=== PATIENT | female | born 1995 | race Caucasian/White ===

== ENCOUNTER 2020-11-17 09:46 | Emergency (ER) | payer BC ==
[2020-11-17] MEDS ORDERED: NA CHLORIDE 0.9% 1,000 ML ONE (10:29)
[2020-11-17 10:42] LABS: Absolute Lymphocytes (CBC) 1.3 K/uL (0.7-4.9); Basophils % 0.3 % (0-1.3); Lymphocytes % 18.1 % (15.3-44.8); RBC Red Blood Cell Count 3.85 M/uL (3.86-4.86)
[2020-11-17 10:51] LABS: Urine Blood Negative (Negative); Urine Glucose Negative (Negative); Urine Protein Negative (Negative); Urine Specific Gravity 1.015 (1.005-1.030); Urine pH 7.5 (5.0-7.0)
[2020-11-17 10:57] LABS: ALT/SGPT 31 U/L (12-78); AST/SGOT 14 U/L (15-37); Albumin 4.6 g/dL (3.4-5.0); Alkaline Phosphatase 78 U/L (45-117); BUN Blood Urea Nitrogen 10 mg/dL (7-18); Bicarbonate 27 mmol/L (21-32); Bilirubin Total 0.3 mg/dL (0.2-1.0); Glucose Level 98 mg/dL (74-106); Potassium 4.5 mmol/L (3.5-5.1); Sodium Level 142 mmol/L (136-145)
[2020-11-17 11:28] LABS: Urine Specific Gravity/Preg 1.015 (1.005-1.030)
[2020-11-17 11:40] LABS: Blood Gas Oxyhemoglobin 96.4 % (94-97); Blood O2 Saturation 98.3 % (92-98.5)
--- NOTE | 2020-11-17 11:46 | RAD REPORT ---
EXAM DESCRIPTION: CT - Head Brain Wo Cont - 11/17/2020 11:26 am CLINICAL HISTORY: Syncope COMPARISON: None. TECHNIQUE: Computed axial tomography of the head was obtained. IV contrast was not requested. All CT scans are performed using dose optimization technique as appropriate and may include automated exposure control or mA/KV adjustment according to patient size. FINDINGS: An intracranial bleed is not seen . The ventricles are normal in caliber. No extra-axial fluid collection is noted. Fluid within the sinuses/ mastoids is not seen. IMPRESSION: No acute intracranial abnormality is seen. If patient's symptoms persist MRI of the bra in would be recommended.
--- NOTE | 2020-11-17 11:48 | RAD REPORT ---
EXAM DESCRIPTION: Luanne Single View11/17/2020 10:52 am CLINICAL HISTORY: Shortness of breath COMPARISON: none FINDINGS: The lungs appear clear of acute infiltrate. The heart is normal size IMPRESSION: No acute abnormalities displayed
--- NOTE | 2020-11-17 11:53 | EDPHYS ---
Physician Documentation [facility] Name: Josephine Su Age: 25 yrs Sex: Female : 1995 Arrival Date: 11/17/2020 Time: 09:50 Bed 2 Private MD: ED Physician Antonino Lynn HPI: 11/17 10:25 This 25 yrs old Female presents to ER via EMS with complaints of Rectal pamela Bleeding. 10:25 The patient presents to the emergency department with bleeding from the rectum/anus, pamela that is mild. Onset: The symptoms/episode began/occurred just prior to arrival, 1 day(s) ago. Context: the patient has no known special context relating to the rectal area complaint(s). Modifying factors: The symptoms are alleviated by nothing, The symptoms are aggravated by nothing. Associate signs and symptoms: The patient has no apparent associated signs or symptoms. The patient has not experienced similar symptoms in the past. 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 - Social history:: Smoking status: Patient denies any tobacco usage or history of. ROS: 10:26 Constitutional: Negative for fever, chills, and weight loss, Eyes: Negative for injury, pamela pain, redness, and discharge, ENT: Negative for injury, pain, and discharge, Neck: Negative for injury, pain, and swelling, Back: Negative for injury and pain, : Negative for injury, bleeding, discharge, and swelling, MS/Extremity: Negative for injury and deformity, Skin: Negative for injury, rash, and discoloration, Neuro: Negative for headache, weakness, numbness, tingling, and seizure, Psych: Negative for depression, anxiety, suicide ideation, homicidal ideation, and hallucinations, Allergy/Immunology: Negative for hives, rash, and allergies, Endocrine: Negative for neck swelling, polydipsia, polyuria, polyphagia, and marked weight changes, Hematologic/Lymphatic: Negative for swollen nodes, abnormal bleeding, and unusual bruising. 10:26 Cardiovascular: Positive for chest pain, palpitations. 10:26 Respiratory: Positive for shortness of breath. 10:26 Abdomen/GI: Positive for rectal bleeding. Exam: 10:26 Constitutional: This is a well developed, well nourished patient who is awake, alert, pamela and in no acute distress. Head/Face: Normocephalic, atraumatic. Eyes: Pupils equal round and reactive to light, extra-ocular motions intact. Lids and lashes normal. Conjunctiva and sclera are non-icteric and not injected. Cornea within normal limits. Periorbital areas with no swelling, redness, or edema. ENT: Nares patent. No nasal discharge, no septal abnormalities noted. Tympanic membranes are normal and external auditory canals are clear. Oropharynx with no redness, swelling, or masses, exudates, or evidence of obstruction, uvula midline. Mucous membranes moist. Neck: Trachea midline, no thyromegaly or masses palpated, and no cervical lymphadenopathy. Supple, full range of motion without nuchal rigidity, or vertebral point tenderness. No Meningismus. Chest/axilla: Normal chest wall appearance and motion. Nontender with no deformity. No lesions are appreciated. Cardiovascular: Regular rate and rhythm with a normal S1 and S2. No gallops, murmurs, or rubs. Normal PMI, no JVD. No pulse deficits. Respiratory: Lungs have equal breath sounds bilaterally, clear to auscultation and percussion. No rales, rhonchi or wheezes noted. No increased work of breathing, no retractions or nasal flaring. Abdomen/GI: Soft, non-tender, with normal bowel sounds. No distension or tympany. No guarding or rebound. No evidence of tenderness throughout. Back: No spinal tenderness. No costovertebral tenderness. Full range of motion. Skin: Warm, dry with normal turgor. Normal color with no rashes, no lesions, and no evidence of cellulitis. MS/ Extremity: Pulses equal, no cyanosis. Neurovascular intact. Full, normal range of motion. Neuro: Awake and alert, GCS 15, oriented to person, place, time, and situation. Cranial nerves II-XII grossly intact. Motor strength 5/5 in all extremities. Sensory grossly intact. Cerebellar exam normal. Normal gait. Psych: Awake, alert, with orientation to person, place and time. Behavior, mood, and affect are within normal limits. 10:26 Musculoskeletal/extremity: DVT Exam: No signs of deep vein thrombosis. no pain, no swelling, no tenderness, negative Homans' sign noted on exam, no appreciated bluish discoloration, no erythema, no increased warmth. 10:28 ECG was reviewed by the Attending Physician. pamela 10:28 Musculoskeletal/extremity: DVT Exam: No signs of deep vein thrombosis. Vital Signs: 09:57 BP 115 / 67; Pulse 68; Resp 16; Temp 97.4; Pulse Ox 99% on R/A; Weight 77.11 kg; Height em1 6 ft. 0 in. (182.88 cm); Pain 3/10; 12:38 BP 112 / 65; Pulse 68; Resp 16; Pulse Ox 100% ; ll1 09:57 Body Mass Index 23.06 (77.11 kg, 182.88 cm) em1 MDM: 09:51 Patient medically screened. pamela 10:30 Differential diagnosis: abnormal EKG, anxiety, hemorrhoids, pulmonary embolus, unstable pamela angina. HEART Score: History: Slightly Suspicious (0), ECG: Normal (0), Age: < or = 45 years (0), Risk Factors: No Risk Factors Known (0), Troponin: < or = 1 x Normal Limit (0), Total Score = 0. The patient's deep vein thrombosis risk score was calculated as follows: Total Score: 0. This patient was found to be at low risk for a deep vein thrombosis by using the Well's assessment criteria. The patient's pulmonary embolism risk score was calculated as follows: Total Score: 0-2 points. This patient was found to be at low risk for a pulmonary embolism by using the Well's assessment criteria. FLORIDALMA Risk Score: TOTAL SCORE = 0. Data reviewed: vital signs, nurses notes, lab test result(s), EKG, radiologic studies, plain films. Data interpreted: environmental monitoring specialist: rate is 68 beats/min, rhythm is regular, Pulse oximetry: on room air is 99 %. Test interpretation: by ED physician or midlevel provider: ECG, plain radiologic studies. Counseling: I had a detailed discussion with the patient and/or guardian regarding: the historical points, exam findings, and any diagnostic results supporting the discharge/admit diagnosis, lab results, radiology results, the need for outpatient follow up, for definitive care, a diamond mounter, a family practitioner, a supply service worker. 11/17 09:54 Order name: CBC with Diff; Complete Time: 11:[address] [facility] 11/17 09:54 Order name: Comprehensive Metabolic Panel; Complete Time: 11:[address] [facility] 11/17 09:54 Order name: Urine Culture [facility] 11/17 10:24 Order name: D-Dimer; Complete Time: 11:[address] [facility] 11/17 10:24 Order name: Troponin (emerg Dept Use Only) [facility] 11/17 10:25 Order name: Troponin (Emerg Dept Use Only); Complete Time: 11:06 [facility] 11/17 10:24 Order name: Chest Single View XRAY [facility] 11/17 10:51 Order name: Urine Dipstick-Ancillary; Complete Time: 11:06 [facility] 11/17 10:53 Order name: Urine --Ancillary (enter results) 11/17 10:54 Order name: Urine --Ancillary; Complete Time: 11:32 [facility] 11/17 11:06 Order name: ABG [facility] 11/17 11:06 Order name: CT Head Brain wo Cont [facility] 11/17 09:54 Order name: Urine Dipstick-Ancillary (obtain specimen); Complete Time: 10:[address] [facility] 11/17 09:54 Order name: Urine Test (obtain specimen); Complete Time: 10:[address] [facility] 11/17 09:54 Order name: EKG; Complete Time: 09:[address] [facility] 11/17 09:54 Order name: EKG - Nurse/Tech; Complete Time: 10:[address] [facility] 11/17 09:54 Order name: Orthostatics: after fluid bolus; Complete Time: 10:[address] [facility] EC:28 Rate is 73 beats/min. Rhythm is regular. QRS Onia is Normal. OH interval is normal. QRS pamela interval is normal. QT interval is normal. No Q waves. T waves are Normal. No ST changes noted. Clinical impression: NSR w/ Non-specific ST/T Changes and No evidence of ischemia. Interpreted by me. Reviewed by me. Administered Medications: 10:13 Drug: NS 0.9% 1000 ml Route: IV; Rate: 1 bolus; Site: right antecubital; ll1 11:45 Follow up: Response: No adverse reaction; IV Status: Completed infusion; IV Intake: ll1 1000ml 10:14 Drug: NS 0.9% 1000 ml Route: IV; Rate: 1 bolus; Site: right antecubital; ll1 11:45 Follow up: Response: No adverse reaction; RASS: Alert and Calm (0); IV Status: IV ll1 infiltrated; IV Intake: 100ml 12:35 Drug: Tylenol 1000 mg Route: PO; ll1 12:36 Follow up: Response: No adverse reaction; RASS: Alert and Calm (0) ll1 Disposition: 11/17/20 11:53 Discharged to Home. Impression: Gastrointestinal hemorrhage, unspecified - lower / stable, Syncope and collapse - near/ vasovagal. - Condition is Stable. - Discharge Instructions: Gastrointestinal Bleeding, Near-Syncope, Rectal Bleeding, Weakness, Near-Syncope, Kbka-io-Vajn, Gastrointestinal Bleeding, Ibme-ci-Bbaz, Rectal Bleeding, Yqte-ia-Ivwi, Vasovagal Syncope, Adult. - Medication Reconciliation Form, Thank You Letter, Antibiotic Education, Prescription Opioid Use form. - Follow up: Private Physician; When: 2 - 3 days; Reason: Recheck today's complaints, Continuance of care, Re-evaluation by your physician. Follow up: Guero West; When: 2 - 3 days; Reason: Recheck today's complaints, Continuance of care, Re-evaluation by your physician. Follow up: Henry Hawley; When: 2 - 3 days; Reason: Recheck today's complaints, Continuance of care, Re-evaluation by your physician. Follow up: Juan Cunningham; When: 2 - 3 days; Reason: Recheck today's complaints, Re-evaluation by your physician. - Problem is new. - Symptoms have improved. Signatures: Dispatcher [employer] EDMS Antonino Lynn MD MD cha Lewis, Lynsay RN RN ll1 Corrections: (The following items were deleted from the chart) 12:41 11:53 11/17/2020 11:53 Discharged to Home. Impression: Gastrointestinal hemorrhage, ll1 unspecified - lower / stable; Syncope and collapse - near/ vasovagal. Condition is Stable. Discharge Instructions: Gastrointestinal Bleeding, Near-Syncope, Rectal Bleeding, Weakness, Near-Syncope, Lxnn-hf-Juwj, Gastrointestinal Bleeding, Duiu-aw-Vvsn, Rectal Bleeding, Pkfr-pv-Tpho, Vasovagal Syncope, Adult. Forms are Medication Reconciliation Form, Thank You Letter, Antibiotic Education, Prescription Opioid Use. Follow up: Private Physician; When: 2 - 3 days; Reason: Recheck today's complaints, Continuance of care, Re-evaluation by your physician. Follow up: Guero West; When: 2 - 3 days; Reason: Recheck today's complaints, Continuance of care, Re-evaluation by your physician. Follow up: Henry Hawley; When: 2 - 3 days; Reason: Recheck today's complaints, Continuance of care, Re-evaluation by your physician. Follow up: Juan Cunningham; When: 2 - 3 days; Reason: Recheck today's complaints, Re-evaluation by your physician. Problem is new. Symptoms have improved. pamela
--- NOTE | 2020-11-17 11:53 | ER ---
Nurse's Notes [facility] Name: Josephine Su Age: 25 yrs Sex: Female : 1995 Arrival Date: 11/17/2020 Time: 09:50 Bed 2 Private MD: Diagnosis: Gastrointestinal hemorrhage, unspecified-lower / stable;Syncope and collapse-near/ vasovagal Presentation: 11/17 09:51 Chief complaint: Patient states: Rectal bleeding for 1 day. Went to her doctor Dr. tracie West, they found a fistula. Used nitro cream rectally. EMS states: Vital stable. 20 G IV with fluids. Coronavirus screen: Client denies travel out of the [place] in the last 14 days. At this time, the client does not indicate any symptoms associated with coronavirus-19. Ebola Screen: Patient denies travel to an Ebola-affected area in the 21 days before illness onset. Risk Assessment: Do you want to hurt yourself or someone else? Patient reports no desire to harm self or others. Onset of symptoms was November 17, 2020. 09:51 Method Of Arrival: EMS: [facility] ll1 09:51 Acuity: TRAV 3 ll1 12:40 Initial Sepsis Screen: Does the patient meet any 2 criteria? No. Patient's initial ll1 sepsis screen is negative. Does the patient have a suspected source of infection? No. Patient's initial sepsis screen is negative. ANALYSIS SPECIALIST: 12:41 LMP N/A - control method, UPT negative ll1 Historical: - Allergies: 09:51 No Known Allergies; ll1 - PMHx: 09:51 None; ll1 - Immunization history:: Adult Immunizations up to date. - Social history:: Smoking status: Patient denies any tobacco usage or history of. Screenin:55 Abuse screen: Denies threats or abuse. Nutritional screening: No deficits noted. ll1 Tuberculosis screening: No symptoms or risk factors identified. 12:40 Fall Risk None identified. IV access (20 points). Total Myles Fall Scale indicates No ll1 Risk (0-24 pts). Assessment: 10:00 General: Appears uncomfortable, Behavior is calm, cooperative, appropriate for age. ll1 Pain: Complains of pain in head Quality of pain is described as aching. Neuro: Level of Consciousness is awake, alert, Oriented to person, place, time, situation, Appropriate for age Digital Campaign Specialist are equal bilaterally Moves all extremities. Full function Gait is steady, Speech is normal, Facial symmetry appears normal, Reports dizziness, headache. Cardiovascular: No deficits noted. Respiratory: No deficits noted. GI: Abdomen is flat, Bowel sounds present X 4 quads. Abd is soft and non tender X 4 quads. Reports rectal bleeding. 11:00 Reassessment: No changes from previously documented assessment. Patient and/or family ll1 updated on plan of care and expected duration. Pain level reassessed. 12:00 Reassessment: No changes from previously documented assessment. Patient and/or family ll1 updated on plan of care and expected duration. Pain level reassessed. Patient is alert, oriented x 3, equal unlabored respirations, skin warm/dry/pink. Vital Signs: 09:57 BP 115 / 67; Pulse 68; Resp 16; Temp 97.4; Pulse Ox 99% on R/A; Weight 77.11 kg; Height em1 6 ft. 0 in. (182.88 cm); Pain 3/10; 12:38 BP 112 / 65; Pulse 68; Resp 16; Pulse Ox 100% ; ll1 09:57 Body Mass Index 23.06 (77.11 kg, 182.88 cm) em1 ED Course: 09:50 Patient arrived in ED. ll1 09:50 Arm band placed on Patient placed in an exam room, on a stretcher. ll1 09:51 Antonino Lynn MD is Attending Physician. [facility] 09:54 Triage completed. ll1 09:55 Melissa Elizabeth, GLADIS is Primary Nurse. ll1 10:00 Maintain EMS IV. Dressing intact. Good blood return noted. Site clean \T\ dry. Gauge \T\ ll 1 site: 20 G R AC. 10:15 Patient has correct armband on for positive identification. Bed in low position. Call 1 light in reach. Side rails up X 1. Pulse ox on. NIBP on. 10:20 EKG done, by ED staff, reviewed by Antonino Lynn MD. Inserted saline lock: 20 gauge in em1 right forearm, using aseptic technique. 10:49 X-ray completed. Portable x-ray completed in exam room. Patient tolerated procedure mh1 well. 10:50 Chest Single View XRAY In Process Unspecified. EDMS 11:26 CT Head Brain wo Cont In Process Unspecified. EDMS 11:52 Guero West MD is Referral Physician. [facility] 11:52 Henry Hawley MD is Referral Physician. [facility] 11:52 Juan Cunningham MD is Referral Physician. pamela 12:37 No provider procedures requiring assistance completed. IV discontinued, intact, ll1 bleeding controlled, No redness/swelling at site. Pressure dressing applied. Administered Medications: 10:13 Drug: NS 0.9% 1000 ml Route: IV; Rate: 1 bolus; Site: right antecubital; ll1 11:45 Follow up: Response: No adverse reaction; IV Status: Completed infusion; IV Intake: ll1 1000ml 10:14 Drug: NS 0.9% 1000 ml Route: IV; Rate: 1 bolus; Site: right antecubital; ll1 11:45 Follow up: Response: No adverse reaction; RASS: Alert and Calm (0); IV Status: IV ll1 infiltrated; IV Intake: 100ml 12:35 Drug: Tylenol 1000 mg Route: PO; ll1 12:36 Follow up: Response: No adverse reaction; RASS: Alert and Calm (0) ll1 Intake: 11:45 IV: 1000ml; Total: 1000ml. ll1 11:45 IV: 100ml; Total: 1100ml. ll1 Outcome: 11:53 Discharge ordered by . pamela 12:40 Discharged to home ambulatory. ll1 12:40 Condition: stable 12:40 Discharge instructions given to patient, Instructed on discharge instructions, follow up and referral plans. Demonstrated understanding of instructions, follow-up care. 12:41 Patient left the ED. ll1 Signatures: Dispatcher [employer] Antonino Ku MD MD cha Harvey, Martha 1 Christo Carmen 1 Melissa Elizabeth, RN RN ll1
[2020-11-17] MEDS ORDERED: ACETAMINOPHEN 500 MG TAB ONE (12:46)
[2020-11-17 12:51] VITALS: BP 112/65; O2SAT 100
[2020-11-17 12:53] VITALS: TEMP 97.4
--- NOTE | 2020-11-18 07:20 | EKG ---
Test Date: 2020-11-17 Test Time: 10:02:53 Intelligence Engineer: GUILLERMINA MEASUREMENT RESULTS: Intervals: Rate: 73 UT: 180 QRSD: 96 QT: 378 QTc: 416 [place]: P: 71 UT: 180 QRS: 68 T: 69 INTERPRETIVE STATEMENTS: Normal sinus rhythm with sinus arrhythmia Incomplete right bundle branch block Borderline ECG No previous ECG available for comparison Electronically Signed On 11-18-20 07:18:06 CDT by Henry Hawley
== END 2020-11-17 12:41 | disposition home or self-care (01) ==
LOC: ER 09:46
DX: K92.2 Gastrointestinal hemorrhage, unspecified (principal); R55 Syncope and collapse
CPT/HCPCS: 87088; 85025; 87086; 36415; 81025; 85379; 81003; 84484; 80053; 70450; 71045; 82805; J7030; 93005; 96360; 96361; 99284

== ENCOUNTER 2021-06-15 07:23 | Day surgery (SDC) | payer BC ==
[2021-06-15] MEDS ORDERED: Ringers Lactate 1,000 ML IV ONE (07:57)
[2021-06-15] MEDS ORDERED: CEFOXITIN/NS 1gm 1 GM/50 ML BAG ONE (07:58)
[2021-06-15 08:09] LABS: Absolute Lymphocytes (CBC) 1.3 K/uL (0.7-4.9); Basophils % 0.5 % (0-1.3); Hematocrit 37.8 % (36.0-45.0); Lymphocytes % 23.4 % (15.3-44.8); MPV 8.2 fL (7.6-11.3)
[2021-06-15 08:19] LABS: ALT/SGPT 28 U/L (12-78); AST/SGOT 17 U/L (15-37); Albumin 4.4 g/dL (3.4-5.0); Alkaline Phosphatase 81 U/L (45-117); Amylase 42 U/L (25-115); BUN Blood Urea Nitrogen 9 mg/dL (7-18); Bicarbonate 27 mmol/L (21-32); Bilirubin Direct 0.1 mg/dL (0-0.2); Bilirubin Total 0.5 mg/dL (0.2-1.0); Glucose Level 94 mg/dL (74-106); Lipase 74 U/L (73-393); Potassium 3.9 mmol/L (3.5-5.1); Protein, Total 8.1 g/dL (6.4-8.2); Sodium Level 140 mmol/L (136-145)
[2021-06-15] MEDS ORDERED: BUPIVACAINE 0.5% Inj,MDV 50 mL VIAL ONE (08:50)
[2021-06-15] MEDS ORDERED: propofoL 200 MG/20 ML VIAL IV ONE (08:51)
[2021-06-15] MEDS ORDERED: MIDAZOLAM HCL 2 MG/2 ML INJ ONE ×2 (08:51→10:28)
[2021-06-15] MEDS ORDERED: FENTANYL CITR 100 MCG/2 ML ONE (08:51)
[2021-06-15] MEDS ORDERED: LIDOCAINE 1% MPF 2 ML AMPULE ONE (08:51)
[2021-06-15] MEDS ORDERED: GLYCOPYRROLATE 0.2 MG/ML SYR ONE ×2 (08:51→09:47)
[2021-06-15] MEDS ORDERED: KETOROLAC 30 MG/ML INJ ONE (08:52)
[2021-06-15] MEDS ORDERED: ROCURONIUM 50 MG/5 ML VIAL IV ONE (08:52)
[2021-06-15] MEDS ORDERED: dexAMETHasone 10 MG/ML VIAL ONE (08:52)
[2021-06-15] MEDS ORDERED: ONDANSETRON 4 MG/2 ML VIAL ONE (08:52)
[2021-06-15] MEDS ORDERED: DIPHENHYDRAMINE 50 MG/ML VIAL ONE (09:32)
[2021-06-15] MEDS ORDERED: EPHEDRINE SULF 50 MG/ML VIAL ONE (09:34)
[2021-06-15] MEDS ORDERED: NEOSTIGMINE 1 MG/ML -5 ML ONE (09:50)
--- NOTE | 2021-06-15 09:55 | P.BOP ---
Preoperative diagnosis: acute cholecystitis, symptomatic cholelithiasis, RUQ abd pain Postoperative diagnosis: same Primary procedure: Laparoscopic cholecystectomy Workplace Trainer And Assessor: Tamika Aguilar) Estimated blood loss: <10cc Specimen: gb Findings: as above Anesthesia: General Complications: None Transferred to: Recovery Room Condition: Good
[2021-06-15] MEDS ORDERED: HYDROMORPHONE HCL 1 MG/ML INJ ONE (10:15)
[2021-06-15] MEDS ORDERED: PROMETHAZINE INJ 25 MG/ML AMP ONE (11:15)
[2021-06-15 11:26] VITALS: TEMP 97.2; O2SAT 100
[2021-06-15] MEDS ORDERED: HYDROCODONE/APAP 5/325 MG TAB ONE (11:38)
--- NOTE | 2021-06-15 11:44 | OP ---
Date of Procedure: 06/15/2021 Surgeon: Dakota Carmen MD Electric Motor Mechanic: DAMIR Constantino. Preoperative Diagnoses: Acute cholecystitis, symptomatic cholelithiasis, right upper quadrant abdomi nal pain. Postoperative Diagnoses: Acute cholecystitis, symptomatic cholelithiasis, right upper quadrant abdom inal pain. Procedure: Laparoscopic cholecystectomy. Estimated Blood Loss: Less than 10 mL. Specimen: Gallbladder. Anesthesia: General plus local. Indication: This is a case of a 26-year-old patient who comes to us with multiple episodes of abdomi nal pain. She has been in the ER. 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 She has upper endoscopies, colonoscopies, CAT scans. Last night, the attack came once again, epigastric righ t upper quadrant pain radiating to the back, nausea, and she was going to be scheduled electively for symptomatic cholelithiasis treatment in the form of laparoscopic cholecystectomy, but then the sympt oms get worse to the point that we had to do it today. Benefits, alternatives, and risks of laparosc opic possible open cholecystectomy fully explained which include, but not limited to infection, bleed ing, damage to adjacent structures, anesthesia complication, choledocholithiasis, bile leak, pancreat itis, ID, and even . She also understands this may not relieve any symptoms. She might need mo re than one surgical intervention. She understood, signed a consent. Procedure In Detail: The patient was brought to the operating room, placed in supine position. Anes thesia was done without complication. Abdominal area was prepped and draped in usual sterile fashion . Marcaine 0.5% was injected for local anesthetic followed by sharp incision of the skin in the infr aumbilical region. Incision was carried down to fascia, which was opened under direct vision. Perit oneum was encountered, opened under direct vision. Vicryl #1 placed inside the fascia. Sandra troca r was carefully introduced. Pneumoperitoneum was obtained. After that, I placed 3 more trocars, 5 m m each one of them in the epigastric and right upper quadrant area. A grasper was placed in the fund us of the gallbladder. Another grasper in the infundibulum retracting the gallbladder in the inferol ateral fashion exposing the triangle of Calot obtaining critical view. Cystic duct and cystic artery were clearly isolated, free circumferentially and a connection between those and the gallbladder wer e clearly identified. I proceeded to ligate those by using at least 3 clips proximal, 1 clip distal, ligation in middle. Same was done with the cystic artery. No bile leak. No bleeding. The gallbla dder was removed from liver using Bovie cauterizer and removed from abdominal cavity using EndoCatch through the umbilical incision. The area was inspected once again. No bile leak. No bleeding. At that moment, I proceeded to remove the trocars under direct vision. Deflated pneumoperitoneum. Clos ed the fascia with #1 Vicryl. Irrigated subcutaneous tissue, closed that with 3-0 chromic and skin w ith 3-0 chromic and Steri-Strips on top. Sponge count and instrument counts correct. The patient to lerated the procedure well. The patient was sent to Recovery in stable condition. Disposition: Home. Activity: As tolerated. No heavy lifting. Plan: Follow up in my office in 1 week. Call for appointment at [phone]. Keep area dry for 48 linda rs, then may shower. Keep Steri-Strip intact. Medications: See orders. HM/MODL Voice ID: [id number] Report ID: [id number]
[2021-06-15 12:36] VITALS: BP 95/64
== END 2021-06-15 12:20 | disposition home or self-care (01) ==
LOC: OR 07:23
PROVIDERS: ATTEND Surgery
PROC: 0FT44ZZ Resection of Gallbladder, Percutaneous Endoscopic Approach (ICD-10-PCS; principal; 2021-06-15 08:30)
DX: K81.1 Chronic cholecystitis (principal); Z20.822 Contact with and (suspected) exposure to COVID-19
CPT/HCPCS: 85025; 80048; 36415; 82150; 84703; 80076; 88304; 83690; 47562; U0003; J2704; J2550; J1200; J2250 ×2; J3010; J1100; J1170; J2710; J7120; J0694; J2405

== ENCOUNTER 2023-08-08 08:09 | Day surgery (SDC) | payer BC ==
--- NOTE | 2023-08-03 08:59 | RAD REPORT ---
EXAM DESCRIPTION: Luanne Grove (2 Views)08/03/2023 8:48 am CLINICAL HISTORY: Preop for knee arthroscopy COMPARISON: 2021 FINDINGS: The lungs appear clear of acute infiltrate. The heart is normal size IMPRESSION: No acute abnormalities displayed
[2023-08-03 09:12] LABS: Absolute Lymphocytes (CBC) 2.1 K/uL (0.7-4.9); Hematocrit 38.3 % (36.0-45.0); Lymphocytes % 32.1 % (15.3-44.8); MCV 91.6 fL (80-100); MPV 8.3 fL (7.6-11.3); Platelets 304 thou/uL (152-406); RBC Red Blood Cell Count 4.18 M/uL (3.86-4.86)
[2023-08-03 09:21] LABS: Protime INR 1.05
[2023-08-03 09:31] LABS: Potassium 4.2 mEq/L (3.5-5.1)
[2023-08-08] MEDS ORDERED: Ringers Lactate 1,000 ML IV ONE (08:34)
[2023-08-08] MEDS: CEFAZOLIN SODIUM 1 GM/VIAL ONE ×2 (09:53→10:42)
[2023-08-08] MEDS: BUPIVACAINE 0.25% PF 30 ML VIAL ONE ×3 (09:53→11:30)
[2023-08-08 10:05] LABS: Urine Specific Gravity/Preg 1.015 (1.005-1.030)
[2023-08-08] MEDS ORDERED: propofoL 200 MG/20 ML VIAL IV ONE (10:31)
[2023-08-08] MEDS ORDERED: LIDOCAINE 1% MPF 5 ML VIAL ONE (10:31)
[2023-08-08] MEDS ORDERED: MIDAZOLAM HCL 2 MG/2 ML INJ ONE (10:32)
[2023-08-08] MEDS ORDERED: FENTANYL CITR 100 MCG/2 ML ONE ×2 (10:32→11:53)
[2023-08-08] MEDS ORDERED: MEPERIDINE HCL 25 MG/ML SYR ONE (11:52)
--- NOTE | 2023-08-08 12:10 | P.BOP ---
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
[2023-08-08] MEDS ORDERED: HYDROCODONE/APAP 7.5/325 MG TAB ONE (12:43)
[2023-08-08 13:36] VITALS: BP 121/61; TEMP 97.6; O2SAT 98
== END 2023-08-08 13:20 | disposition home or self-care (01) ==
LOC: OR 08:09
PROVIDERS: ATTEND Orthopaedic Surgery Sports Medicine
PROC: 0SBD4ZZ Excision of Left Knee Joint, Percutaneous Endoscopic Approach (ICD-10-PCS; principal; 2023-08-08 10:45)
DX: M67.52 Plica syndrome, left knee (principal); K21.9 Gastro-esophageal reflux disease without esophagitis; R00.0 Tachycardia, unspecified
CPT/HCPCS: 85025; 80048; 36415; 84703; 81025; 85610; 85730; 71046; 29875; J2704; J2001; J2250; J3010 ×2; J2175; J7120; J0690